=== PATIENT | female | born 1980 | race Caucasian/White ===

== ENCOUNTER → 2023-12-22 10:55 | Outpatient (CLI) | payer OTHER, SELFPAY ==
--- NOTE | 2023-12-22 11:00 | DI.RAD.S_ITS ---
PROCEDURE: XR HIP W PEL IF DONE RT 2V INDICATIONS: RIGHT HIP PAIN TECHNIQUE: 2 views of the hip were acquired. COMPARISON: [facility], CR, [id number] W PEL IF PERFORMED, 11/26/2017, 11:57. FINDINGS: Bones: No fractures or dislocations. No suspicious bony lesions. The visualized pelvic ring appears intact. Soft tissues: No suspicious soft tissue calcifications or masses. IMPRESSION: No acute bony abnormality. Dictated by: Victor Manuel Gan M.D. on 12/22/2023 at 15:49 Approved by: Victor Manuel Gan M.D. on 12/22/2023 at 15:50
--- NOTE | 2023-12-22 11:00 | DI.RAD.S_ITS ---
PROCEDURE: XR SHOULDER RT MIN 2V INDICATIONS: PAIN TECHNIQUE: 3 views of the shoulder were acquired. COMPARISON: None. FINDINGS: Bones: No fractures or dislocations. No suspicious bony lesions. Visualized ribs appear intact. Soft tissues: No suspicious soft tissue calcifications. IMPRESSION: No acute bony abnormality. Dictated by: Victor Manuel Gan M.D. on 12/22/2023 at 15:48 Approved by: Victor Manuel Gan M.D. on 12/22/2023 at 15:49
== END ==
LOC: RAD 10:58
PROVIDERS: PCP Family Medicine; Referring Provider Family Medicine; Visit Provider Family Medicine
DX: M25.511 Pain in right shoulder (principal); M16.11 Unilateral primary osteoarthritis, right hip; M79.10 Myalgia, unspecified site; M25.9 Joint disorder, unspecified
CPT/HCPCS: 73030; 73502; 80053; 82306; 84443; 85025; 86140

== ENCOUNTER → 2023-12-22 14:28 | Outpatient (ROUT) | payer OTHER, SELFPAY ==
[2023-12-22 14:37] LABS: Add Manual Diff / Slide Review NO; Basophils Absolute Auto 0 /uL (0-100); Basophils Percent Auto 0.4 % (0-2); Eosinophils Absolute Auto 100 /uL (0-450); Hematocrit 40.5 % (36-46); Hemoglobin 13.8 g/dL (12.0-16.0); Lymphocytes Absolute Auto 2100 /uL (1100-4500); Mean Corpuscular Hemoglobin 31.5 PG (26-34); Mean Corpuscular Volume 92.5 fL (80-100); Monocytes Absolute Auto 300 /uL (0-900); Monocytes Percent Auto 5.6 % (3-14); Neutrophils Absolute Auto 3200 /uL (1500-7000); Platelet Count 217 X10^3/uL (150-400); Red Blood Cell Count 4.38 X10^6/uL (4.0-5.2); Red Cell Distribution Width 12.5 % (11.6-14.8); White Blood Cell Count 5.7 X10^3/uL (4.5-11.0)
[2023-12-22 14:45] LABS: Alanine Aminotransferase 17 IU/L (<35); Albumin 4.6 g/dL (3.5-5.0); Albumin Globulin Ratio 1.5 (1.0-2.8); Alkaline Phosphatase 56 U/L (38-126); Aspartate Aminotransferase 24 IU/L (14-36); Bilirubin Total 0.6 mg/dL (0.2-1.3); Blood Urea Nitrogen 8 mg/dL (7-17); C-Reactive Protein Quant < 0.5 mg/dL (<1.0); Calcium 9.3 mg/dL (8.4-10.2); Carbon Dioxide 25 mmol/L (22-32); Chloride 107 mmol/L (98-107); Estimated Glomerular Filt Rate > 60 mL/min (>60); Globulin 3.1 g/dL (1.7-4.1); Glucose 79 mg/dL (70-100); HEMOLYSIS 23 (0-50); Potassium 3.9 mmol/L (3.4-5.1); Sodium 140 mmol/L (137-145); Total Protein 7.7 g/dL (6.3-8.2)
[2023-12-22 15:13] LABS: Thyroid Stimulating Hormone 1.44 uIU/mL (0.47-4.68)
== END ==
PROVIDERS: PCP Family Medicine; Visit Provider Family Medicine
DX: M25.511 Pain in right shoulder (principal); M79.10 Myalgia, unspecified site; M25.9 Joint disorder, unspecified
CPT/HCPCS: 80053; 82306; 84443; 85025; 86140

== ENCOUNTER → 2024-01-06 14:51 | Outpatient (ROUT) | payer OTHER, SELFPAY ==
[2024-01-06 15:25] LABS: Rheumatoid Factor < 8.6 IU/mL (<12.0)
[2024-01-12 16:57] LABS: ANA Screen, IFA Negative (.)
== END ==
PROVIDERS: PCP Family Medicine; Visit Provider Family Medicine
DX: S23.3XXA Sprain of ligaments of thoracic spine, initial encounter (principal); M79.10 Myalgia, unspecified site; M70.60 Trochanteric bursitis, unspecified hip
CPT/HCPCS: 86038; 86430

== ENCOUNTER → 2024-11-27 11:44 | Outpatient (CLI) | payer OTHER, SELFPAY ==
--- NOTE | 2024-11-27 11:47 | DI.RAD.S_ITS ---
PROCEDURE: XR CERVICAL SPINE 2V OR 3V INDICATIONS: CERVICAL STRAIN TECHNIQUE: Three views) of the cervical spine were acquired. COMPARISON: None. FINDINGS: Cervical spine curvature and alignment: Normal. Bones: There are no osseous abnormalities. Disc spaces: Mild C5-6 degenerative disc disease noted. Soft tissues: No soft tissue swelling, calcification or mass. IMPRESSION: Mild C5-6 degenerative disc disease Dictated by: Ivan Ruiz M.D. on 11/28/2024 at 9:30 Approved by: Ivan Ruiz M.D. on 11/28/2024 at 9:31
== END ==
LOC: RAD 11:45
PROVIDERS: PCP Family Medicine; Referring Provider Family Medicine; Visit Provider Family Medicine
DX: S13.4XXA Sprain of ligaments of cervical spine, initial encounter (principal); M50.322 Other cervical disc degeneration at C5-C6 level
CPT/HCPCS: 72040

== ENCOUNTER → 2025-01-23 10:50 | Outpatient (CLI) | payer OTHER, SELFPAY ==
--- NOTE | 2025-01-23 | DI.RAD.S_ITS ---
PROCEDURE: XR TOE RT MIN 2V INDICATIONS: RT TOE CONTUSION TECHNIQUE: Three views of the right great toe (s) acquired. COMPARISON: None. FINDINGS: Bones: There are no fractures or other significant osseous abnormalities Joints: The joint spaces are normal in width and alignment without arthritic change. Soft tissues: No soft tissue abnormality. IMPRESSION: Normal. Dictated by: Ivan Ruiz M.D. on 01/24/2025 at 10:08 Approved by: Ivan Ruiz M.D. on 01/24/2025 at 10:09
== END ==
PROVIDERS: PCP Family Medicine; Referring Provider Family Medicine; Visit Provider Family Medicine
DX: S90.111A Contusion of right great toe without damage to nail, initial encounter (principal); X58.XXXA Exposure to other specified factors, initial encounter
CPT/HCPCS: 73660